=== PATIENT | female | born 1985 | race Caucasian/White ===

== ENCOUNTER 2017-08-04 17:00 | Outpatient (CLI) | payer BC ==
[2017-08-04 18:53] LABS: ALT (SGPT) 36 U/L (8-55); AST (SGOT) 17 U/L (5-34); Albumin 3.9 g/dL (3.5-5.0); Alkaline Phosphatase 72 U/L (40-150); Bilirubin, Direct 0.1 mg/dL (0.1-0.3); Bilirubin, Total 0.2 mg/dL (0.2-1.2); Protein, Total 6.9 g/dL (6.0-8.3)
[2017-08-04 18:54] LABS: BHCG - Serum Negative (NEGATIVE); Pregs Control Background? CLEAR/WHITE (CLR/WHITE); Pregs Control Bar Appear? YES (CONTROL BAR)
[2017-08-05 16:29] LABS: #Basophils 0.1 thou/uL (0.0-0.2); #Eosinphils 0.1 thou/uL (0.0-0.7); #Lymphocytes 3.1 thou/uL (1.20-3.40); #Monocytes 0.8 thou/uL (0.11-0.59); #Neutrophils 4.8 thou/uL (1.40-6.50); %Basophils 0.9 % (0.0-1.0); %Eosinophils 1.6 % (0.0-10.0); %Lymphocytes 35.1 % (21.0-51.0); %Monocytes 8.5 % (0.0-10.0); Hemoglobin 11.3 g/dL (12.0-16.0); Mean Corpuscular HGB CONC 31.8 g/dL (32.0-36.0); Mean Corpuscular Hemoglobin 25.3 pg (27.0-31.0); Mean Corpuscular Volume 79.6 fl (81.0-99.0); Mean Platelet Volume 7.3 fL (7.4-10.4); Platelet Count 319 thou/uL (130-400); Red Blood Cell (RBC) Count 4.46 mill/uL (4.20-5.40); White Blood Cell (WBC) Count 8.9 thou/uL (4.8-10.8)
[2017-08-05 16:37] LABS: Hemoglobin A1c 4.8 % (4.0-6.0)
--- NOTE | 2017-08-07 17:32 | EKG ---
Test Reason : Blood Pressure : / mmHG Vent. Rate : 063 BPM Atrial Rate : 063 BPM P-R Int : 144 ms QRS Dur : 096 ms QT Int : 412 ms P-R-T Axes : 046 061 052 degrees QTc Int : 421 ms Normal sinus rhythm with sinus arrhythmia Normal ECG When compared with ECG of 26-NOV-2014 14:10, (Unconfirmed) Nonspecific T wave abnormality no longer evident in Inferior leads Confirmed by DR. Rubén VICENTE ([id number]) on 08/07/2017 5:31:42 PM Referred By: MICHAEL Confirmed By:DR. Rubén VICENTE
== END 2017-08-04 17:01 | disposition home or self-care (01) ==
LOC: LABBT 17:00
PROVIDERS: ATTEND Surgery
DX: Z01.818 Encounter for other preprocedural examination (principal); E66.01 Morbid (severe) obesity due to excess calories
CPT/HCPCS: 71046; 80076; 83036; 84703; 85025; 93005; 93010

== ENCOUNTER 2017-08-04 17:00 | Inpatient (IN) | payer BC ==
[2017-08-04 17:36] VITALS: BMI 47.0
--- NOTE | 2017-08-05 16:27 | RAD ---
TWO VIEW CHEST: 08/05/17 HISTORY: Preoperative evaluation. The lungs are clear. Heart and mediastinum appear unremarkable. Osseous structures are unremarkable. IMPRESSION: No acute abnormality. POS: [facility]
[2017-08-18] MEDS ORDERED: CEFAZOLIN/Water 2 GM/20 ML SYRINGE ONE (07:03)
[2017-08-18] MEDS ORDERED: Heparin 5,000 UNITS/ML VIAL ONE (07:03)
[2017-08-18 08:55] LABS: Anion Gap 10 mmol/L (10-20); BUN (Urea Nitrogen) 12 mg/dL (7.0-18.7); Calc. Creatinine Clearance 207 mL/min (70-130); Carbon Dioxide 26 mmol/L (22-29); Chloride 106 mmol/L (98-107); Estimated GFR-MDRD 88; Glucose 93 mg/dL (70-105); Potassium 3.9 mmol/L (3.5-5.1); Sodium 138 mmol/L (136-145)
[2017-08-18] MEDS ORDERED: Midazolam HCl 2 mg/2 ml Vial ONE ×3 (09:01→09:24)
[2017-08-18] MEDS ORDERED: Fentanyl 250 MCG/5 ML VIAL ONE ×2 (09:10→11:22)
[2017-08-18] MEDS ORDERED: Bupivacaine/Epinephrine 0.25% 30 ML VIAL ONE (09:13)
[2017-08-18] MEDS ORDERED: Hydrocodone-Acetamin 15 ML UDCUP PO PRN (10:57)
[2017-08-18] MEDS ORDERED: Promethazine HCl 25 MG/ML VIAL IM PRN ×3 (10:57→11:36)
[2017-08-18] MEDS ORDERED: hydrALAZINE 20 MG/ML VIAL SLOW IVP PRN (10:57)
[2017-08-18] MEDS ORDERED: diphenhydrAMINE 50 MG/ML VIAL IVP PRN ×2 (10:57→11:36)
[2017-08-18] MEDS ORDERED: Ondansetron HCl/PF 4 MG/2 ML Vial IVP PRN ×3 (10:57→11:36)
[2017-08-18] MEDS ORDERED: Dextrose 50% Abboject 50 ML SYRINGE SLOW IVP PRN (10:57)
[2017-08-18] MEDS ORDERED: Dextrose 5% in Water 1,000 ML IV PRN (10:57)
[2017-08-18] MEDS ORDERED: Promethazine HCl 25 MG/ML VIAL SLOW IVP PRN (11:10)
--- NOTE | 2017-08-18 11:22 | OP ---
PREOPERATIVE DIAGNOSIS: Morbid obesity. SURGEON: Aly Whitaker M.D. PROCEDURES PERFORMED: Laparoscopic sleeve gastrectomy and esophagogastroscopy. INDICATIONS: A 32-year-old female, morbidly obese, who has attempted multiple weight loss programs w [facility]. FINDINGS: A 38 [place] bougie used. PROCEDURE IN DETAIL: After informed consent was obtained, the patient was taken the operating room a nd given general endotracheal anesthesia. She was placed in the supine position. The abdomen was pr epped and draped in usual fashion. Local anesthesia infiltrated subcutaneously and deep. A 12 mm in cision was performed approximately 8 inches below the xiphoid slightly to the left. Veress needle in serted. Drop test performed. Pneumoperitoneum was created to a volume of 2 liters of carbon dioxide . Utilizing a bladeless 12 mm trocar and 0 degree laparoscope, direct visual entry in the abdominal cavity was performed. Pneumoperitoneum was created to a pressure of 15 mmHg. Zero degree laparoscop e inserted under direct vision and Nathansen liver retractor inserted. Left lobe of liver retracted superiorly. Pylorus identified and 12 mm port placed on the right beneath it, two 12s placed left trujillo bcostal. The omentum was taken off the greater curvature 5 cm from the pylorus utilizing the LigaSur e. Short gastrics divided with LigaSure, left crura defined with the LigaSure. A 38-[place]aj[place] bougie i nserted directed into the antrum. Linear 60 mm green load stapler used to divide the antrum to the b ougie, gold load along the bougie, and a series of blues through the angle of His. Intraoperative en doscopy was performed. The video endoscope inserted under direct vision and advanced into the sleeve . Staple line inspected. There was no bleeding. Staple line then tested by inflating the new stoma ch with pressurized air under water. There was no air leak. Stomach decompressed. Scope removed. The remnant stomach removed from the abdomen through the left lateral port site. Fascia closed with interrupted 0 Vicryl suture and the GraNee needle. Trocars and retractors removed. The skin closed with interrupted 4-0 Rapide. Dermabond applied. The patient tolerated the procedure well and was tr ansferred to recovery in good condition. Sponge and needle count verified correct x2.
[2017-08-18] MEDS ORDERED: Promethazine HCl 25 MG/ML VIAL ONE ×2 (11:30→12:34)
[2017-08-18] MEDS ORDERED: Zolpidem Tartrate 5 MG TAB PO PRN (11:36)
[2017-08-18] MEDS ORDERED: Naloxone HCl 0.4 mg/ml Vial IV PRN (11:36)
[2017-08-18] MEDS ORDERED: diphenhydrAMINE 50 MG/ML VIAL IM PRN (11:36)
[2017-08-18] MEDS ORDERED: Morphine CADD 1 MG/ML CADD IVPB PRN (11:36)
[2017-08-18] MEDS ORDERED: diphenhydrAMINE 25 MG CAP PO PRN (11:36)
[2017-08-18] MEDS ORDERED: Communication Order-Pharmacy FS SCH (11:45)
[2017-08-18] MEDS ORDERED: CEFAZOLIN/Water 2 GM/20 ML SYRINGE SLOW IVP SCH (14:00)
[2017-08-18] MEDS ORDERED: Glycopyrrolate 0.2 MG/ML 5 ML SYRINGE ONE (14:10)
[2017-08-18] MEDS ORDERED: Lidocaine 1% PF 5 ML VIAL ONE (14:10)
[2017-08-18] MEDS ORDERED: Propofol 200 MG/20 ML VIAL ONE (14:10)
[2017-08-18] MEDS ORDERED: Ketorolac Tromethamine 30 MG/ML VIAL ONE (14:10)
[2017-08-18] MEDS ORDERED: Ondansetron HCl/PF 4 MG/2 ML Vial ONE (14:10)
[2017-08-18] MEDS: Ketorolac Tromethamine 30 MG/ML VIAL IVP PRN (18:14)
[2017-08-18] MEDS: CEFAZOLIN/Water 2 GM/20 ML SYRINGE SLOW IVP SCH (18:14)
[2017-08-18] MEDS: D5 1/2 NS w/20 mEq KCL 1,000 ML IV SCH (18:20)
[2017-08-19] MEDS: Ketorolac Tromethamine 30 MG/ML VIAL IVP PRN ×3 (00:24→21:21)
[2017-08-19] MEDS: D5 1/2 NS w/20 mEq KCL 1,000 ML IV SCH ×4 (01:23→18:27)
[2017-08-19] MEDS: CEFAZOLIN/Water 2 GM/20 ML SYRINGE SLOW IVP SCH (02:55)
[2017-08-19 05:57] LABS: #Basophils 0.1 thou/uL (0.0-0.2); #Eosinphils 0.1 thou/uL (0.0-0.7); #Lymphocytes 2.5 thou/uL (1.20-3.40); #Monocytes 0.7 thou/uL (0.11-0.59); #Neutrophils 4.2 thou/uL (1.40-6.50); %Basophils 0.9 % (0.0-1.0); %Eosinophils 0.9 % (0.0-10.0); %Lymphocytes 33.2 % (21.0-51.0); %Monocytes 9.2 % (0.0-10.0); %Neutrophils 55.9 % (42.0-75.0); Hemoglobin 10.1 g/dL (12.0-16.0); Mean Corpuscular HGB CONC 31.9 g/dL (32.0-36.0); Mean Corpuscular Hemoglobin 26.5 pg (27.0-31.0); Mean Corpuscular Volume 83.2 fl (81.0-99.0); Mean Platelet Volume 7.7 fL (7.4-10.4); Platelet Count 252 thou/uL (130-400); RBC Distribution Width 14.2 % (11.5-14.5); Red Blood Cell (RBC) Count 3.82 mill/uL (4.20-5.40); White Blood Cell (WBC) Count 7.5 thou/uL (4.8-10.8)
[2017-08-19 06:19] LABS: Anion Gap 6 mmol/L (10-20); BUN (Urea Nitrogen) 9 mg/dL (7.0-18.7); Calc. Creatinine Clearance 213 mL/min (70-130); Calcium 7.9 mg/dL (7.8-10.44); Carbon Dioxide 28 mmol/L (22-29); Chloride 107 mmol/L (98-107); Estimated GFR-MDRD Greater than 90; Glucose 96 mg/dL (70-105); Potassium 3.8 mmol/L (3.5-5.1); Sodium 137 mmol/L (136-145)
[2017-08-19] MEDS: Pantoprazole 40 MG VIAL IVP SCH (08:29)
[2017-08-19] MEDS: Enoxaparin Sodium 40 MG/0.4 ML SYRINGE SC SCH (08:29)
--- NOTE | 2017-08-19 09:06 | RAD ---
LIMITED UPPER GI: Date: 08-19-17 History: Patient is post gastric sleeve procedure. FINDINGS: 15 ml of Gastrografin was administered. Contrast traverses the GE junction freely and without holdup. Contrast extends into the duodenum. There is no extravasation of contrast to suggest a leak. Multipl e surgical clips overlie the epigastric region related to recent surgery. IMPRESSION: Post-surgical change related to gastric sleeve procedure. No extravasation of contrast is visualized to suggest leak and contrast traverses the GE junction without holdup. POS: [facility]
[2017-08-19] MEDS ORDERED: Fentanyl 100 MCG/2 ML VIAL SLOW IVP PRN (09:44)
[2017-08-19] MEDS: Fentanyl 100 MCG/2 ML VIAL SLOW IVP PRN ×2 (13:27→18:27)
[2017-08-19] MEDS: Hydrocodone-Acetamin 15 ML UDCUP PO PRN (21:22)
[2017-08-20] MEDS: Hydrocodone-Acetamin 15 ML UDCUP PO PRN ×3 (03:27→15:21)
[2017-08-20] MEDS: D5 1/2 NS w/20 mEq KCL 1,000 ML IV SCH ×2 (03:27→12:48)
[2017-08-20] MEDS: Ketorolac Tromethamine 30 MG/ML VIAL IVP PRN ×2 (03:27→08:53)
[2017-08-20] MEDS: Enoxaparin Sodium 40 MG/0.4 ML SYRINGE SC SCH (08:53)
[2017-08-20] MEDS: Pantoprazole 40 MG VIAL IVP SCH (08:53)
--- NOTE | 2017-08-20 11:29 | DIS ---
DISCHARGE DIAGNOSIS: Morbid obesity. PROCEDURES DURING ADMISSION: Laparoscopic sleeve gastrectomy, postoperative Gastrografin swallow, in traoperative esophagogastroscopy. HOSPITAL COURSE: The patient was admitted, taken to the operating room where she underwent sleeve ga strectomy. Postoperatively, she had trouble with swallowing and more pain than usual. The Gastrogra fin swallow was fine. She was started on liquids, but she could not tolerate enough to go home. She spent the night, a second night and the next day she felt a lot better. She is tolerating liquids w ell. Pain is much better. She is discharged home on hydrocodone and Zofran. She will follow up ana egan in 2 weeks.
[2017-08-20 15:40] VITALS: BP 136/64; TEMP 98
== END 2017-08-20 18:01 | disposition home or self-care (01) | DRG 621 ==
LOC: SURG A 08-18 06:44
PROVIDERS: ADMIT Surgery; ATTEND Surgery
PROC: 0DB64Z3 Excision of Stomach, Percutaneous Endoscopic Approach, Vertical (ICD-10-PCS; principal; 2017-08-18)
DX: E66.01 Morbid (severe) obesity due to excess calories (principal); F17.210 Nicotine dependence, cigarettes, uncomplicated; R07.9 Chest pain, unspecified; Z71.3 Dietary counseling and surveillance; Z68.42 Body mass index [BMI] 45.0-49.9, adult
CPT/HCPCS: 36415; 36416; 71046; 74241; 80048; 85025; 88307; 88312; C9113; J1644; J1650; J1885; J2001; J2250; J2274; J2405; J2550; J2704; J3010

== ENCOUNTER 2020-02-08 13:08 | Emergency (ER) | payer BC ==
[2020-02-08] MEDS ORDERED: Morphine 4 MG/ML VIAL ONE (13:31)
[2020-02-08] MEDS ORDERED: Ondansetron PF 4 MG/2 ML Vial ONE (13:31)
[2020-02-08 13:38] LABS: #Basophils 0.1 thou/uL (0.0-0.2); #Eosinphils 0.1 thou/uL (0.0-0.7); #Lymphocytes 2.1 thou/uL (1.20-3.40); #Monocytes 0.5 thou/uL (0.11-0.59); #Neutrophils 3.4 thou/uL (1.40-6.50); %Lymphocytes 33.9 % (21.0-51.0); %Neutrophils 56.1 % (42.0-75.0); Hemoglobin 8.8 g/dL (12.0-16.0); Mean Corpuscular HGB CONC 30.8 g/dL (32.0-36.0); Mean Corpuscular Hemoglobin 20.4 pg (27.0-31.0); Mean Corpuscular Volume 66.3 fL (78.0-98.0); Mean Platelet Volume 10.4 fL (7.4-10.4); Platelet Count 333 thou/uL (130-400); RBC Distribution Width 17.6 % (11.5-14.5); Red Blood Cell (RBC) Count 4.31 mill/uL (4.20-5.40); White Blood Cell (WBC) Count 6.1 thou/uL (4.8-10.8)
[2020-02-08 13:48] LABS: BHCG - Serum Negative (NEGATIVE); Pregs Control Background? CLEAR/WHITE (CLR/WHITE); Pregs Control Bar Appear? YES (CONTROL BAR)
[2020-02-08 13:54] LABS: Anisocytosis SLIGHT = 6-15 cells (100X) (0-5/hpf); Hypochromia SLIGHT = 6-15 cells (100X) (0-5/hpf); MDiff Complete? YES; Microcytosis SLIGHT = 6-15 cells (100X) (0-5/hpf); Ovalocytes SLIGHT = 2-5 cells (100X) (0-1/hpf); Platelet Morphology Comment Appears Adequate; Polychromasia SLIGHT = 2-3 cells (100X) (0-2/hpf); Schistocytes SLIGHT = 2-5 cells (100X) (0-1/hpf)
[2020-02-08 13:59] LABS: ALT (SGPT) 9 U/L (8-55); AST (SGOT) 13 U/L (5-34); Albumin 3.8 g/dL (3.5-5.0); Alkaline Phosphatase 54 U/L (40-110); Anion Gap 13 mmol/L (10-20); BUN (Urea Nitrogen) 7 mg/dL (7.0-18.7); Bilirubin, Total 0.5 mg/dL (0.2-1.2); CK (CPK) 27 U/L (29-168); Calc. Creatinine Clearance 0 mL/min (70-130); Calcium 8.3 mg/dL (7.8-10.44); Carbon Dioxide 22 mmol/L (22-29); Chloride 105 mmol/L (98-107); Estimated GFR-MDRD Greater than 90; Globulin 2.6 g/dL (2.4-3.5); Glucose 92 mg/dL (70-105); Potassium 3.4 mmol/L (3.5-5.1); Protein, Total 6.4 g/dL (6.0-8.3); Sodium 137 mmol/L (136-145)
--- NOTE | 2020-02-08 14:19 | CT ---
BRAIN CT WITHOUT IV CONTRAST: Date: 02/08/2020 HISTORY: Dizziness, syncopal episode. Found down. COMPARISON: 03/17/2010. FINDINGS: No focal mass or midline shift. No intra or extra-axial hemorrhage. Sinuses and mastoids are clear of acute process. IMPRESSION: No significant acute intracranial process. No mass or bleed. Stable from prior study. POS: [facility]
--- NOTE | 2020-02-08 14:29 | RAD ---
XR Chest 1 View Portable HISTORY: Syncope, dizziness COMPARISON: 11/26/2014 FINDINGS: The heart size is normal. The lungs are well expanded without focal areas of consolidation, pneumothorax or pleural effusions. IMPRESSION: No radiographic evidence of acute cardiopulmonary process.
--- NOTE | 2020-02-08 14:33 | CT ---
CERVICAL SPINE CT SCAN WITHOUT IV CONTRAST: Date: 02/08/2020 HISTORY: Syncopal episode, patient found down, dizziness. COMPARISON: 03/17/2010. FINDINGS: There is no evidence for acute fracture or facet dislocation. There is a fairly prominent right parac entral protrusion at C4-C5 with ventral right-sided lateral recess stenosis and possible right cord c ompression. If the patient has right-sided radiculopathy or myelopathy type symptoms, consider nonemergent follow -up MRI for further assessment. IMPRESSION: 1. No acute fracture or dislocation. 2. 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 POS: [facility]
[2020-02-08] MEDS ORDERED: Fentanyl 100 MCG/2 ML VIAL ONE (15:07)
[2020-02-08] MEDS ORDERED: HYDROcodone/Acetaminophen 5/325 mg Tablet ONE (15:07)
== END 2020-02-08 16:17 | disposition home or self-care (01) ==
LOC: ERS 13:08
DX: R55 Syncope and collapse (principal); S00.81XA Abrasion of other part of head, initial encounter; S00.31XA Abrasion of nose, initial encounter; F17.210 Nicotine dependence, cigarettes, uncomplicated; W19.XXXA Unspecified fall, initial encounter
CPT/HCPCS: 70450; 71045; 72125; 80053; 82550; 84484; 84703; 85025; 93005; 94760; 96361; 96374; 96375; J2270; J2405; J3010

== ENCOUNTER 2021-05-09 20:43 | Inpatient (IN) | payer BC, SELFPAY ==
[2021-05-09] MEDS ORDERED: Morphine 4 MG/ML VIAL ONE (22:05)
[2021-05-09] MEDS ORDERED: Piperacillin/Tazobactam 3.375 GM VIAL ONE (22:05)
[2021-05-09] MEDS ORDERED: Dexamethasone 10 MG/ML VIAL ONE (22:55)
[2021-05-10 00:03] VITALS: BMI 24.0
[2021-05-10] MEDS ORDERED: Ondansetron PF 4 MG/2 ML Vial IVP PRN ×2 (00:15→12:36)
[2021-05-10] MEDS ORDERED: Ondansetron ODT 4 MG TAB SL PRN (00:15)
[2021-05-10] MEDS: Morphine 4 MG/ML VIAL SLOW IVP PRN ×6 (00:56→20:54)
[2021-05-10] MEDS: Sodium Chloride 0.9% 1,000 ML IV SCH ×2 (00:56→09:24)
[2021-05-10] MEDS ORDERED: Vancomycin 1 GM in Premix Bag 1 BAG IVPB SCH (01:00)
[2021-05-10] MEDS ORDERED: Acetaminophen 650 MG Suppository PR PRN (04:45)
[2021-05-10] MEDS ORDERED: Piperacillin/Tazobactam 3.375 GM in Sodium Chloride 0.9% 100 ML IVPB SCH ×2 (06:00→07:00)
[2021-05-10] MEDS ORDERED: Dexamethasone 10 MG/ML VIAL SLOW IVP SCH (07:00)
[2021-05-10 08:50] LABS: Hemoglobin 7.2 g/dL (12.0-16.0); Mean Corpuscular HGB CONC 27.3 g/dL (32.0-36.0); Mean Corpuscular Hemoglobin 17.6 pg (27.0-31.0); Mean Corpuscular Volume 64.4 fL (78.0-98.0); Mean Platelet Volume 6.1 fL (7.4-10.4); Platelet Count 311 thou/uL (130-400); RBC Distribution Width 22.9 % (11.5-14.5); Red Blood Cell (RBC) Count 4.06 mill/uL (4.20-5.40); White Blood Cell (WBC) Count 7.2 thou/uL (4.8-10.8)
[2021-05-10] MEDS ORDERED: FLU VACC QS2021-22(6MOS UP)/PF 60 MCG/0.5 ML SYRINGE IM ONE (09:00)
[2021-05-10 09:48] LABS: Hypochromia SLIGHT = 6-15 cells (100X) (0-5/hpf); MDiff Complete? YES; Microcytosis MARKED = >30 cells (100X) (0-5/hpf); Ovalocytes SLIGHT = 2-5 cells (100X) (0-1/hpf); Platelet Morphology Comment Appears Adequate; Polychromasia MODERATE = 3-4 cells (100X) (0-2/hpf)
[2021-05-10 09:51] LABS: Band 10 % (5-11); Lymphocytes 3 % (21-51); Monocytes 4 % (0-10); Neutrophil 83 % (42-75)
[2021-05-10] MEDS ORDERED: Vancomycin HCl 1.25 GM in Sodium Chloride 0.9% 250 ML 250 ML IVPB SCH (12:00)
[2021-05-10] MEDS ORDERED: Potassium Chloride 20 MEQ in Premix Bag 1 BAG IVPB SCH (12:30)
[2021-05-10] MEDS ORDERED: Polyethylene Glycol 3350 17 GM Packet PO PRN (12:31)
[2021-05-10] MEDS ORDERED: Ondansetron ODT 4 MG TAB PO PRN (12:36)
[2021-05-10] MEDS ORDERED: Ketorolac Tromethamine 30 MG/ML VIAL IVP SCH ×2 (12:45→14:00)
[2021-05-10] MEDS: NS 0.9% w/ 40 MEQ KCL 1,000 ML IV SCH ×2 (12:53→23:49)
[2021-05-10] MEDS: Ampicillin/Sulbactam 3 GM in Sodium Chloride 0.9% 100 ML IVPB SCH ×2 (15:09→20:53)
[2021-05-10] MEDS ORDERED: Chlorhexidine Gluconate 15 ML UDCUP SSP ONE (15:43)
[2021-05-10] MEDS ORDERED: Lidocaine 1% w/Epinephrine 1:100K 20 ML VIAL ONE (15:43)
[2021-05-10] MEDS ORDERED: Lidocaine 2% Jelly 5 ML TUBE ONE (16:14)
[2021-05-10] MEDS ORDERED: HYDROmorphone 0.5 MG/0.5 ML SYRINGE ONE (16:14)
[2021-05-10] MEDS ORDERED: Fentanyl 100 MCG/2 ML VIAL ONE ×2 (16:14→16:31)
[2021-05-10] MEDS ORDERED: Midazolam HCl 2 mg/2 ml Vial ONE (16:14)
[2021-05-10] MEDS ORDERED: Lidocaine 1% PF 5 ML VIAL ONE (16:40)
[2021-05-10] MEDS ORDERED: PROPOFOL 200 MG/20 ML VIAL ONE (16:40)
[2021-05-10] MEDS ORDERED: Glycopyrrolate 0.2 MG/ML 5 ML SYRINGE ONE (16:40)
[2021-05-10] MEDS ORDERED: Ondansetron PF 4 MG/2 ML Vial ONE (16:40)
[2021-05-10] MEDS ORDERED: Dexamethasone 20 MG/5 ML VIAL ONE (16:40)
[2021-05-10] MEDS ORDERED: Rocuronium Bromide 10 MG/ML (10ML VIAL) ONE (16:40)
[2021-05-10] MEDS ORDERED: Neomycin-Polymyxin 1 ML AMP ONE (16:49)
[2021-05-10] MEDS ORDERED: Meperidine HCl/PF 25 MG/ML VIAL SLOW IVP PRN ×2 (16:59)
[2021-05-10] MEDS ORDERED: Ondansetron HCl/PF 4 MG/2 ML Vial IVP PRN (16:59)
[2021-05-10] MEDS ORDERED: Promethazine HCl 25 MG/ML VIAL IVPB PRN (16:59)
[2021-05-10] MEDS ORDERED: Promethazine HCl 25 MG/ML VIAL IM PRN (16:59)
[2021-05-10] MEDS ORDERED: HYDROmorphone 2 MG/ML VIAL SLOW IVP PRN (16:59)
[2021-05-10] MEDS: Ferrous Sulfate 325 MG TAB PO SCH (18:14)
[2021-05-10] MEDS: Potassium Bicarbonate/Cit Ac 25 MEQ TAB PO SCH (20:54)
[2021-05-10] MEDS: Famotidine/PF 20 mg/2ml Vial SLOW IVP SCH (20:56)
[2021-05-10] MEDS: Senokot S 8.6-50 MG TAB PO SCH (20:56)
[2021-05-10] MEDS ORDERED: diphenhydrAMINE 50 MG/ML VIAL ONE (23:11)
[2021-05-10] MEDS: Chlorhexidine Gluconate 15 ML UDCUP SSP SCH (23:49)
[2021-05-10] MEDS: Famotidine 20 MG TAB PO SCH (23:49)
[2021-05-11] MEDS: Morphine 4 MG/ML VIAL SLOW IVP PRN ×3 (01:00→23:53)
[2021-05-11] MEDS: Ampicillin/Sulbactam 3 GM in Sodium Chloride 0.9% 100 ML IVPB SCH ×4 (02:54→20:30)
[2021-05-11] MEDS: NS 0.9% w/ 40 MEQ KCL 1,000 ML IV SCH (04:47)
[2021-05-11 05:24] LABS: #Lymphocytes 1.2 thou/uL (1.20-3.40); #Monocytes 0.9 thou/uL (0.11-0.59); #Neutrophils 10.4 thou/uL (1.40-6.50); %Basophils 0.1 % (0.0-1.0); %Lymphocytes 9.2 % (21.0-51.0); %Neutrophils 83.7 % (42.0-75.0); Hemoglobin 6.1 g/dL (12.0-16.0); Mean Corpuscular HGB CONC 28.6 g/dL (32.0-36.0); Mean Corpuscular Hemoglobin 18.4 pg (27.0-31.0); Mean Corpuscular Volume 64.4 fL (78.0-98.0); Platelet Count 290 thou/uL (130-400); RBC Distribution Width 22.6 % (11.5-14.5); Red Blood Cell (RBC) Count 3.33 mill/uL (4.20-5.40); White Blood Cell (WBC) Count 12.5 thou/uL (4.8-10.8)
[2021-05-11 05:46] LABS: Anion Gap 8 mmol/L (10-20); BUN (Urea Nitrogen) 12 mg/dL (7.0-18.7); Calc. Creatinine Clearance 138 mL/min (70-130); Calcium 8.2 mg/dL (7.8-10.44); Carbon Dioxide 25 mmol/L (22-29); Chloride 108 mmol/L (98-107); Glucose 98 mg/dL (70-105); Magnesium 1.8 mg/dL (1.6-2.6); Potassium 4.2 mmol/L (3.5-5.1); Sodium 137 mmol/L (136-145)
[2021-05-11] MEDS ORDERED: diphenhydrAMINE 25 MG CAP PO PRN (06:49)
[2021-05-11] MEDS: Ferrous Sulfate 325 MG TAB PO SCH ×2 (07:24→16:39)
[2021-05-11] MEDS: Acetaminophen 325 MG TAB PO PRN (07:26)
[2021-05-11] MEDS ORDERED: Iron, Sodium Ferric Gluconate 250 MG in Sodium Chloride 0.9% 250 ML 250 ML IVPB SCH (09:00)
[2021-05-11] MEDS: Saccharomyces boulardii 250 MG CAP PO SCH (09:29)
[2021-05-11] MEDS: Chlorhexidine Gluconate 15 ML UDCUP SSP SCH ×2 (09:29→20:29)
[2021-05-11] MEDS: HYDROcodone/Acetaminophen 5/325 mg Tablet PO PRN ×2 (09:29→16:39)
[2021-05-11] MEDS: Famotidine 20 MG TAB PO SCH (09:29)
[2021-05-11] MEDS: Potassium Bicarbonate/Cit Ac 25 MEQ TAB PO SCH (09:29)
[2021-05-11] MEDS: Senokot S 8.6-50 MG TAB PO SCH ×2 (09:29→22:50)
[2021-05-11] MEDS: Famotidine/PF 20 mg/2ml Vial SLOW IVP SCH (09:32)
[2021-05-11] MEDS ORDERED: Calcium Carbonate 500 MG ChewTAB PO PRN ×2 (11:38→11:39)
[2021-05-11] MEDS ORDERED: Mag-Al 1200 mg/1200 mg/30 ML UDCUP PO PRN (11:39)
[2021-05-11] MEDS ORDERED: Morphine 4 MG/ML VIAL SLOW IVP PRN (12:05)
[2021-05-11 18:33] LABS: Bacteria/HPF None Seen HPF (None Seen); Bilirubin Negative (Negative); Blood, Urine Negative (Negative); Clarity Clear (Clear); Glucose, Urine (Dipstick) Normal (Negative); Ketone, Urine Trace mg/dL (Negative); Leukocyte 500 Leu/uL (Negative); Nitrite Negative (Negative); Protein, Urine (Dipstick) 30 mg/dL (Neg-Trace); Specific Gravity, Urine 1.044 (1.002-1.036); WBC/HPF 21-50 HPF (0-3)
[2021-05-11 18:34] LABS: Urine Culture Reflex No No
[2021-05-12] MEDS: Ampicillin/Sulbactam 3 GM in Sodium Chloride 0.9% 100 ML IVPB SCH ×2 (02:50→09:10)
[2021-05-12] MEDS: HYDROcodone/Acetaminophen 5/325 mg Tablet PO PRN ×3 (04:59→14:25)
[2021-05-12 05:30] LABS: Hemoglobin 6.8 g/dL (12.0-16.0); Platelet Count 250 thou/uL (130-400)
[2021-05-12] MEDS: Chlorhexidine Gluconate 15 ML UDCUP SSP SCH (09:10)
[2021-05-12] MEDS: Saccharomyces boulardii 250 MG CAP PO SCH (09:10)
[2021-05-12] MEDS: Morphine 4 MG/ML VIAL SLOW IVP PRN ×2 (09:10→12:43)
[2021-05-12] MEDS: Ferrous Sulfate 325 MG TAB PO SCH (09:10)
[2021-05-12] MEDS: Senokot S 8.6-50 MG TAB PO SCH (09:10)
[2021-05-12] MEDS: Acetaminophen 325 MG TAB PO PRN (10:21)
[2021-05-12 13:25] VITALS: BP 110/74; TEMP 98.6
== END 2021-05-12 15:30 | disposition home or self-care (01) | DRG 137 ==
LOC: ERS 20:43 → SJJU 22:36
PROVIDERS: ADMIT Family Medicine; ATTEND Internal Medicine
PROC: 3E0333Z Introduction of Anti-inflammatory into Peripheral Vein, Percutaneous Approach (ICD-10-PCS; 2021-05-10)
PROC: 0W930ZZ Drainage of Oral Cavity and Throat, Open Approach (ICD-10-PCS; 2021-05-10)
PROC: 0CDWXZ1 Extraction of Upper Tooth, Multiple, External Approach (ICD-10-PCS; 2021-05-10)
PROC: 30233N1 Transfusion of Nonautologous Red Blood Cells into Peripheral Vein, Percutaneous Approach (ICD-10-PCS; principal; 2021-05-11)
PROC: 3E0G76Z Introduction of Nutritional Substance into Upper GI, Via Natural or Artificial Opening (ICD-10-PCS; 2021-05-11)
DX: K04.7 Periapical abscess without sinus (principal); L03.211 Cellulitis of face; L02.01 Cutaneous abscess of face; Z20.822 Contact with and (suspected) exposure to COVID-19; F17.210 Nicotine dependence, cigarettes, uncomplicated; J45.909 Unspecified asthma, uncomplicated; R01.1 Cardiac murmur, unspecified; D50.0 Iron deficiency anemia secondary to blood loss (chronic); N92.0 Excessive and frequent menstruation with regular cycle; I08.1 Rheumatic disorders of both mitral and tricuspid valves; Z28.21 Immunization not carried out because of patient refusal; Z90.49 Acquired absence of other specified parts of digestive tract; Z79.899 Other long term (current) drug therapy; Z98.84 Bariatric surgery status
CPT/HCPCS: 36415; 36430; 70487; 80048; 81001; 83735; 85007; 85014; 85018; 85025; 85027; 85049; 86850; 86870; 86900; 86901; 86905; 86922; 87070; 87205; 93306; 96365; 96375; J0295; J1100; J1170; J1885; J2250; J2270; J2405; J2543; J2704; J3010; J3370; J3480; J3490; J7050; P9016; S0028